=== PATIENT | male | born 1970 | race Caucasian/White ===

== ENCOUNTER 2016-05-22 11:13 | Emergency (ER) | payer SELFPAY ==
[~2016-05-22 11:13] MED LIST: ALPHA LIPOIC A200 MG PO; CEPHALEXIN500 M2 PO; CLINDAMYCIN300 MG PO; DOXYCYCLINE 10100 MG PO; FLEXERIL10 MG PO; FORTAMET1000 MG PO; LIPITOR 40MG TA40 MG PO; LISINOPRIL20 MG PO; MS CONTIN15 MG PO; NORCO 325 MG-101 TAB PO; PERCOCET 325 MG1 TA4 PO; PERCOCET 325 MG1 TA5 PO; PERCOCET 325 MG1 TAB PO; PRILOSEC 20MG20 MG PO; ZOFRAN ODT8 MG PO; ZYRTEC 10MG10 MG PO
== END 2016-05-22 14:26 | disposition home or self-care (01) ==
LOC: ED 11:13
DX: S30.0XXA Contusion of lower back and pelvis, initial encounter (principal); S20.212A Contusion of left front wall of thorax, initial encounter; V89.2XXA Person injured in unspecified motor-vehicle accident, traffic, initial encounter
CPT/HCPCS: J0595

== ENCOUNTER 2023-05-17 19:35 | Emergency (ER) | payer SELFPAY ==
[~2023-05-17] VITALS: Ht 182.9 cm; Wt 129.5 kg
[2023-05-17] MEDS ORDERED: Doxycycline Monohydrate 100 MG CAPSULE PO ONE (20:45)
[2023-05-17] MEDS ORDERED: VIBRAMYCIN HYC100 MG PO (20:50)
[2023-05-17] MEDS ORDERED: DICLOFENAC POT.50 MG PO (20:50)
[2023-05-17 21:06] VITALS: BP 127/77
== END 2023-05-17 21:08 | disposition home or self-care (01) ==
LOC: ED 19:35
DX: L03.116 Cellulitis of left lower limb (principal); Z88.0 Allergy status to penicillin